=== PATIENT | female | born 1955 | race Caucasian/White ===

== ENCOUNTER 2020-09-19 16:55 | Emergency (ER) | payer OTHER ==
[~2020-09-19] VITALS: Ht 167.6 cm; Wt 65.8 kg
[2020-09-19] MEDS ORDERED: PROPOFOL 200 MG/20 ML VIAL IV ONE (17:00)
[2020-09-19] MEDS ORDERED: KETOROLAC 30 MG/ML VIAL IVP ONE (17:00)
[2020-09-19 17:09] VITALS: BP 140/90
--- NOTE | 2020-09-19 17:11 | NUR ---
To Bed 11.
--- NOTE | 2020-09-19 17:22 | NUR ---
65 y/o female c/o right shoulder dislocation x 4 hours. states hit a wall s/p tripping. PMH: cholecystectomy, mitral valve prolapse Allergies: sulfa, pcn, hydrocodone
--- NOTE | 2020-09-19 17:48 | NUR ---
ATTENDED CONSCIOUS SEDATION. VITALS AND CO2 IN RANGE, TOLERATED WELL. NO ISSUES.
[2020-09-19 18:17] VITALS: BP 140/90
--- NOTE | 2020-09-19 18:18 | NUR ---
Patient discharged with v/s stable. Written and verbal after care instructions given and explained. Patient alert, oriented and verbalized understanding of instructions. Ambulatory with steady gait. All questions addressed prior to discharge. ID band removed. Patient advised to follow up with PMD. Rx of Naprosyn and Percocet given. Patient educated on indication of medication including possible reaction and side effects. Opportunity to ask questions provided and answered.
== END 2020-09-19 18:18 | disposition home or self-care (01) ==
LOC: MED 16:55
DX: S42.291A Other displaced fracture of upper end of right humerus, initial encounter for closed fracture (principal); S43.004A Unspecified dislocation of right shoulder joint, initial encounter; Z90.49 Acquired absence of other specified parts of digestive tract; W01.0XXA Fall on same level from slipping, tripping and stumbling without subsequent striking against object, initial encounter; Y93.89 Activity, other specified; Y92.098 Other place in other non-institutional residence as the place of occurrence of the external cause; Y99.8 Other external cause status
CPT/HCPCS: 23675; 73020; 99152; 99285; J1885; J2704